=== PATIENT | female | born 1960 | race Caucasian/White ===

== ENCOUNTER 2020-12-29 22:05 | Emergency (ER) | payer MEDICAID, OTHER ==
[2020-12-29 23:43] LABS: CORONAVIRUS COVID-19 NAA POSITIVE (NEGATIVE)
--- NOTE | 2020-12-29 23:56 | EDM.PDOC ---
ED HPI GENERAL MEDICAL PROBLEM - General Chief Complaint: Respiratory Problem Stated Complaint: DIFFICULTY AND PAIN BREATHING Time Seen by Provider: 12/29/20 23:45 Source of Information: Reports: Patient, RN Notes Reviewed History Limitations: Reports: No Limitations - History of Present Illness INITIAL COMMENTS - FREE TEXT/NARRATIVE: 60-year-old female presents emergency department today after exposure to Covid is concerned she may have Covid she does have shortness of breath with body aches, she is unvaccinated lower back pain Pain Score (Numeric/FACES): 3 - Related Data Allergies Allergy/AdvReac Type Severity Reaction Status Date / Time No Known Allergies Allergy Verified 12/29/20 22:43 Home Meds: Home Meds NK [No Known Home Meds] 12/29/20 [History] Past Medical History HEENT History: Reports: Impaired Vision, Other (See Below) 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: - Infectious Disease History Infectious Disease History: Reports: Chicken Pox - Past Surgical History Female Surgical History: Reports: Hysterectomy Social & Family History - Tobacco Use Tobacco Use Status *Q: Never Tobacco User - Recreational Drug Use Recreational Drug Use: No ED ROS GENERAL - Review of Systems Review Of Systems: See Below Constitutional: Reports: Fever, Weakness, Fatigue Respiratory: Reports: Shortness of Breath Cardiovascular: Reports: Dyspnea on Exertion ED EXAM, GENERAL - Physical Exam Exam: See Below Exam Limited By: No Limitations General Appearance: Alert, WD/WN, No Apparent Distress Respiratory/Chest: No Respiratory Distress, Lungs Clear, Normal Breath Sounds, No Accessory Muscle Use, Chest Non-Tender Cardiovascular: Regular Rate, Rhythm, No Murmur Course - Vital Signs Last Recorded V/S: Last Vital Signs Temp 98.3 F 12/29/20 22:44 Pulse 94 12/29/20 23:14 Resp 16 12/29/20 22:44 BP 101/64 12/29/20 23:14 Pulse Ox 92 L 12/29/20 23:14 - Orders/Labs/Meds Orders: Active Orders 24 hr Category Date Time Status Isolation [COMM] Stat Oth 12/29/20 22:16 Ordered Labs: Laboratory Tests 12/29/20 Range/Units 22:56 Influenza Type A RNA Negative (NEGATIVE) RSV RNA (INAAT) Negative (NEGATIVE) Influenza Type B RNA Negative (NEGATIVE) SARS-CoV-2 RNA (VAL) Positive H (NEGATIVE) Departure - Departure Time of Disposition: 23:55 Disposition: Home, Self-Care 01 Condition: Fair Clinical Impression: COVID-19 - Discharge Information Instructions: 10 Things You Can Do to Manage Your COVID-19 Symptoms at Home - [facility] (08/28/2020) Referrals: Stanton Aguilar Sr, MD [Primary Care Provider] - Additional Instructions: continue with symptomatic care, Tylenol or Motrin as needed for fevers and aches and pains please followup with your primary care provider in 7-10 days if not better, please call return to the emergency department with worsening of symptoms Sepsis Event Note (ED) - Evaluation Sepsis Screening Result: No Definite Risk - Focused Exam Vital Signs: Vital Signs Temp Pulse Resp BP Pulse Ox 12/29/20 23:14 94 101/64 92 L 12/29/20 22:44 98.3 F 113 H 16 129/80 95 12/29/20 22:40 98.3 F 113 H 16 129/80 95 - My Orders Last 24 Hours: My Active Orders 12/29/20 22:16 Isolation [COMM] Stat - Assessment/Plan Last 24 Hours: My Active Orders 12/29/20 22:16 Isolation [COMM] Stat Plan: Assessment Acuity = acute Site and laterality = viral syndrome Etiology = COVID-19 Manifestations = dyspnea Location of injury = Home Lab values = positive for COVID-19, negative for influenza A or B, negative for RSV Plan She is unsure of when her symptoms started therefore she is not a candidate for monoclonal antibody therapy, just continue with symptomatic care return to the emergency department worsening of symptoms This note was dictated using [employer] voice recognition software please call with any questions on syntax or grammar.
== END 2020-12-30 00:08 | disposition home or self-care (01) ==
LOC: JP.ED 22:05
DX: U07.1 COVID-19 (principal)
CPT/HCPCS: 0241U; 99284